=== PATIENT | male | born 1985 | race Caucasian/White ===

== ENCOUNTER 2016-11-14 16:46 | Emergency (ER) | payer SELFPAY ==
--- NOTE | 2016-11-14 20:52 | ERNOTE ---
Upper Extremity HPI - Narrative Date of Service: 11/14/16 - General Extremities Pain Location: wrist: right Source: patient - Immun/Allergies/Home Medications Immunizations: IMMUNIZATION HX Immunizations Up to Date Yes History of Influenza Vaccine No Hx Pneumococcal Vaccination No Allergies/Adverse Reactions: Allergies Allergy/AdvReac Type Severity Reaction Status Date / Time No Known Allergies Allergy Unverified 06/09/14 13:07 Home Medications: HOME MEDICATIONS Naproxen 500 mg PO BID PRN #30 tablet. 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 Complaints of pain at the first extensor compartment of the right hand. Occurred: last week Location of Incident: work Severity: moderate Method of Injury: Reports: other - overuse Loss of Consciousness: Reports: no loss of consciousness Modifying Factors - (Improves): Reports: other - not moving the thumb Modifying Factors - (Worsens): Reports: movement Other Injuries: Reports: none Review of Systems - Review of Systems Constitutional: Present: no symptoms reported EYE: Present: no symptoms reported ENT: Present: no symptoms reported Respiratory: Present: no symptoms reported All Other Systems: All systems neg except as marked - Patient's Past Medical History Patient History - Medical: Seizures Patient History - Cardiac/Respiratory: Asthma Patient History - Cancer: No Hx of Cancer Patient History - Surgical Procedures: Other Patient History - Other: None - Social History Living Situations: alone Psych History: No pertinent hx Smoking Status: Current every day smoker Patient requests Smoking Cessation Consult: No Initiate information on Smoking Cessation: No Alcohol Use: occasionally Drug Use: none - Immunizations Immunizations Up to Date: Yes Hx Pneumococcal Vaccination: No History of Influenza Vaccine: No Physical Exam - Physical Exam General Appearance: Present: no apparent distress Eye Exam: Normal inspection: bilateral, PERRL: bilateral Ears, Nose, Throat: Present: normal ENT inspection Neck: Present: normal inspection Respiratory: Present: no respiratory distress Cardiovascular/Chest: Present: regular rate, rhythm Gastrointestinal/Abdominal: Present: nondistended Back Exam: Present: normal inspection Extremity Exam: Present: other - crepitus noted with extension of the right thumb; Pain was elicited with active extension of the thumb against resistance. Neurological Exam: Present: alert, oriented Skin Exam: Present: normal color ED Progress - Vital Signs Patient's Vital Signs:: I have reviewed the patient's vital signs. Vital Signs: Vital Signs 11/14/16 17:37 Temperature 37.5 C Pulse Rate 82 Respiratory 14 Rate Blood Pressure 127/78 - Progress/Reassessment Chief Complaint: Upper Extremity Injury/Problem Progress:: Unchanged Progress Note-Subjective: 11/17/16 04:43 Placed in a splint. 11/17/16 04:43 Adviased to get a thumb spica splint from the drug store. Departure Clinical Impression: De Quervain's disease (tenosynovitis) - Departure Disposition: Home self-care Condition: Good Instructions: De Quervain Tenosynovitis Print Language: [place] Irish Additional Instructions: Wear the splint to prevent thumb movement so that it can be rested. Referrals: Vamshi Hyde, PAC [[facility]] - Prescriptions: Naproxen 500 mg PO BID PRN #30 tablet.dr ACEVEDO Reason: Pain
[2016-11-14 21:27] VITALS: BP 127/88
--- OUTSIDE RECORDS SUMMARY | 2016-11-15 01:34 | XMS REPORT | Continuity of Care Document ---
:1985 Author Organization [facility] ([facility]) Address [address] [place] [address] Phone [phone] Care Team Providers Name Role Phone Provider, No-Primary Care Primary Care Provider Unavailable Source Comments This disclosure is being made pursuant to the Care Everywhere program, applicable federal and state laws, and may not contain all informaitonavailable regarding this patient.[facility] ([facility]) Active Allergies and Adverse Reactions Not on File Current Medications Not on file Active Problems Not on file Social History Tobacco Use Types Packs/Day Years Used Date Never Assessed Last Filed Vital Signs Vital Sign Reading Time Taken Blood Pressure - - Pulse - - Temperature - - Respiratory Rate - - Height 1.69 m (5' 6.53") 09/21/2004 3:20 PM CONTAINER COORDINATOR Weight 68.997 kg (152 lb 1.8 oz) 09/21/2004 3:20 PM CONTAINER COORDINATOR Body Mass Index 24.16 09/21/2004 3:20 PM CONTAINER COORDINATOR Oxygen Saturation - - Plan of Care Health Maintenance Due Date Last Done Comments Hepatitis B Vaccine (1 of 3 - Primary Series) 1985 Tdap Vaccine 11/15/1998 Lipid Disorder Screening 11/15/2005 MMR Vaccine 11/15/2005 Td Vaccine 11/15/2005 Varicella Vaccine (1 of 2 - Adult - No Evidence of 11/15/2005 Immunity) Influenza Vaccine: Seasonal (#1) 03/03/2016 Results from Last 3 Months Not on file
== END 2016-11-14 21:10 | disposition home or self-care (01) ==
LOC: ER 16:46
DX: M65.4 Radial styloid tenosynovitis [de Quervain] (principal); F17.210 Nicotine dependence, cigarettes, uncomplicated